=== PATIENT | female | born 1975 | race Caucasian/White ===

== ENCOUNTER 2020-06-29 09:19 | Day surgery (SDC) | payer OTHER, BC ==
[~2020-06-29] VITALS: Ht 167.6 cm; Wt 99.8 kg
[~2020-06-29 09:19] MED LIST: ALBU90OI INH; Adipex-P37.5 MG PO; Budeprion Xl300 MG PO; CETI5; Coumadin2 MG PO; DHEA PO; DYAZIDE 37.5-21 EACH; ENOX80I; ENOXAPARIN80 MG/0.8 SQ; FENUGREEK500 MG; K-Dur 20 meq T20 MEQ PO; METFORMIN ER G500 MG PO; OXYACE5T PO; PRAV20 PO; PROG100 PO; VITAMIN D325 MC3 PO; Verotin-Gr Cap1 EACH; WARF10 PO
== END 2020-06-29 12:37 | disposition home or self-care (01) ==
LOC: ORSCSDS 09:19
PROVIDERS: Student in an Organized Health Care Education/Training Program
PROC: 0DBK8ZX Excision of Ascending Colon, Via Natural or Artificial Opening Endoscopic, Diagnostic (ICD-10-PCS; principal; 2020-06-29 11:00)
PROC: 0DBP8ZX Excision of Rectum, Via Natural or Artificial Opening Endoscopic, Diagnostic (ICD-10-PCS; principal; 2020-06-29 11:00)
PROC: 0DBN8ZX Excision of Sigmoid Colon, Via Natural or Artificial Opening Endoscopic, Diagnostic (ICD-10-PCS; principal; 2020-06-29 11:00)
PROC: 0DBM8ZX Excision of Descending Colon, Via Natural or Artificial Opening Endoscopic, Diagnostic (ICD-10-PCS; principal; 2020-06-29 11:00)
DX: Z12.11 Encounter for screening for malignant neoplasm of colon (principal); Z80.0 Family history of malignant neoplasm of digestive organs; D12.2 Benign neoplasm of ascending colon; D12.4 Benign neoplasm of descending colon; K62.1 Rectal polyp; K63.5 Polyp of colon; E88.81 Metabolic syndrome and other insulin resistance; E78.5 Hyperlipidemia, unspecified; Z86.718 Personal history of other venous thrombosis and embolism; Z79.01 Long term (current) use of anticoagulants; Z79.84 Long term (current) use of oral hypoglycemic drugs; Z79.899 Other long term (current) drug therapy
CPT/HCPCS: 88305; J2405; J2704; J7120